=== PATIENT | female | born 1990 | race Caucasian/White ===

== ENCOUNTER 2016-12-23 17:19 | Inpatient (IN) | payer BC ==
[~2016-12-23] VITALS: Ht 154.9 cm; Wt 63.6 kg
[2016-12-23 17:25] VITALS: Ht 154.9 cm; Wt 63.6 kg
[2016-12-23] MEDS ORDERED: PRENAT PO (17:27)
[2016-12-23 18:42] LABS: ADD SCAN DIFF NO
[2016-12-23 18:44] LABS: ABNORMAL IP MESSAGE 1; BASOPHILS % 0.2 % (0.0-2.0); EOSINOPHILS % 0.3 % (0.0-7.0); HEMATOCRIT 31.1 % (37.0-47.0); HEMOGLOBIN 10.4 g/dl (12.0-16.0); LYMPHOCYTES # 0.6 10^3/ul (0.8-2.9); LYMPHOCYTES % 4.4 % (15.0-51.0); MEAN CORPUSCULAR HEMOGLOBIN 30.4 pg (29.0-33.0); MEAN CORPUSCULAR HGB CONC 33.4 g/dl (32.0-37.0); MEAN CORPUSCULAR VOLUME 90.9 fl (82.0-101.0); MEAN PLATELET VOLUME 10.2 fl (7.4-10.4); MONOCYTES % 8.1 % (0.0-11.0); NEUTROPHIL # 10.8 10^3/ul (1.6-7.5); NEUTROPHILS % 86.2 % (39.0-77.0); PLATELET COUNT 172 10^3/UL (140-415); RED BLOOD COUNT 3.42 10^6/ul (4.20-5.40); RED CELL DISTRIBUTION WIDTH 12.2 % (11.5-14.5); WHITE BLOOD COUNT 12.5 10^3/ul (4.8-10.8)
[2016-12-23 18:49] LABS: ADD UMIC YES; URINE BILIRUBIN (Dip) NEGATIVE (NEGATIVE); URINE BLOOD (Dip) NEGATIVE (NEGATIVE); URINE COLOR LT. YELLOW (YELLOW); URINE KETONES (Dip) NEGATIVE (NEGATIVE); URINE LEUKOCYTE ESTERASE (Dip) 1+ (NEGATIVE); URINE NITRITE (Dip) POSITIVE (NEGATIVE); URINE TOTAL PROTEIN (Dip) TRACE (NEGATIVE); URINE UROBILINOGEN (Dip) 0.2 E.U./dL (0.1-1.0)
[2016-12-23 19:03] LABS: BACTERIA,URINE MANY
[2016-12-23 19:04] LABS: SQUAMOUS EPITHELIAL CELL,UR MODERATE
[2016-12-23 19:59] VITALS: BP 118/60; PULSE 105; RESP 18
[2016-12-23] MEDS ORDERED: AL HYDROX/MG HYDROX/SIMETH 30 ML CUP PO PRN (20:00)
[2016-12-23] MEDS ORDERED: ONDANSETRON 4 MG INJ IV PRN (20:00)
[2016-12-23] MEDS ORDERED: SOD CHLORIDE 0.9% 500 ML IV ONE (20:00)
--- NOTE | 2016-12-23 20:08 | HP ---
Date/Time of Note Date/Time of Note DATE: 12/23/16 TIME: 19:55 OB - History Hx of Present Free Text/Dictation 26y.o primigravida at 28weeks 6days with high fever chills and nausea vomiting for the last 2days . highest temp was 101.2 vomiting thursday x1 and today x1 U/A wbc 25-50 with leuko esteras 1+ protein trace rbc 2-5 WBC 17310 admitted for IV antibiotics with hydration at present temp 99.3 HR 129 Estimated Due Date: Mar 11, 2017 : 1 Para: 0 Spontaneous : 0 Therapeutic : 0 Care: Good Care Ultrasounds: Normal mid trimester US Obstetrical Complications: None Past Family/Social History * Past Medical, Surgical, Family and Obstetric Histories reviewed from chart. Blood Type: Unknown Rubella: unknown RPR/VDRL: Unknown GBS Status: Unknown HBsAG: Unknown OB Admission Exam Physical Exam HEENT: WNL Heart: Rhythm Normal Lungs: Clear, Equal Abdomen: WNL Extremities: Normal Reflexes: Normal Cervical Dilatation: other Effacement: Other Station: Other Membranes: Intact Amniotic Fluid: Unevaluable Heart Rate: 140's Accelerations: Accelerations Present Decelerations: No Decelerations Varibility: Moderate Contractions on Admission: < 5 Minutes Apart Duration: not felt by patient cva rt tenderness ++ Intensity: Mild Last 72 hours Lab Results CBC & BMP 12/23/16 18:20 OB Assessment/Plan Reason for admission: other Other Assessment: IUP 28W6D FOOD PREPARATION KITCHEN AIDE Plan: Other Other plan: IV HYDRATION AND ANTIBIOTICS ( ROCEPHIN 1GM Q24HR) VALENTINA ELMORE MD Dec 23, 2016 20:05
--- NOTE | 2016-12-23 20:25 | TRIAGE ---
OB Triage Datetime Report Generated by CPN: 12/23/2016 20:25 Datetime: 12/23/2016 20:20 Stage of : OB Triage Datetime: 12/23/2016 20:11 Assessment Type: Admission Assessment Vaginal Bleeding: None Maternal Assessment Level of Consciousness: Fully Conscious DTR's/Clonus: DTRs 2+; No Clonus Headache: Denies Blurred Vision: No Respiratory Effort: Unlabored; Regular Rhythm; Equal Expansion Breath Sounds, Left: Clear and Equal Breath Sounds, Right: Clear and Equal Nausea/Vomiting: Denies RUQ Epigastric Pain: Denies Lower Extremities Edema: None Degree: None Upper Extremities Edema: None Degree: None Facial Edema: None Fall Risk Assessment History of Falling: (0) No Secondary Diagnosis: (0) No Ambulatory Aid: (0) Bedrest/Nurse Assist IV Therapy: (20) Yes Gait: (0) Normal/Bedrest/Immobile Mental Status: (0) Oriented to Own Ability Fall Score: 20 Fall Risk Score Definition: No Risk: No action required Labor Evaluation Frequency: IRREGULAR Duration (sec)2399: 60-110 Quality: Mild Resting Tone [place]: Relaxed Heart Rate FHR Baseline Rate: 150 Variability: Moderate 6-25 bpm Accelerations: 15X15 Decelerations: None Category: Category I Pain Assessment Pain Scale: 5 Pain Presence: Intermittent Pain Type: Contraction Pain Location: Abdomen Datetime: 12/23/2016 20:05 Stage of : Antepartum Datetime: 12/23/2016 19:36 Stage of : OB Triage Time of Arrival: 12/23/2016 19:36 EGA: 28.6 Arrived By: Wheelchair Arrived From: TRIAGE Datetime: 12/23/2016 19:20 Stage of : OB Triage Maternal Assessment Level of Consciousness: Fully Conscious Headache: Denies Blurred Vision: No Respiratory Effort: Unlabored Nausea/Vomiting: Hx of Nausea/Vomiting RUQ Epigastric Pain: Denies Facial Edema: None Labor Evaluation Frequency: OCCASIONAL Monitor Mode: External Quality: Mild Pattern: Normal: <= 5 Contractions in 10 Minutes Resting Tone [place]: Relaxed Heart Rate FHR Baseline Rate: 150 Monitor Mode: External US Variability: Moderate 6-25 bpm Accelerations: 15X15 Decelerations: None Category: Category I Pain Assessment Pain Scale: 0 Pain Presence: None/Denies Pain Type: N/A Pain Goal: 0 Datetime: 12/23/2016 18:30 Monitor Mode: External Heart Rate FHR Baseline Rate: 155 Monitor Mode: External US FHR Baseline Changes: No Baseline Change Variability: Moderate 6-25 bpm Accelerations: 15X15 Decelerations: None Category: Category I Pain Presence: None/Denies Datetime: 12/23/2016 17:30 Stage of : OB Triage Assessment Type: Triage Maternal Assessment Level of Consciousness: Fully Conscious Blurred Vision: No Breath Sounds, Left: Clear and Equal Breath Sounds, Right: Clear and Equal Nausea/Vomiting: Present RUQ Epigastric Pain: Present Lower Extremities Edema: None Degree: None Upper Extremities Edema: None Degree: None Facial Edema: None Temperature Route: Oral Labor Evaluation Frequency: OCC Monitor Mode: External Quality: Mild Pattern: Normal: <= 5 Contractions in 10 Minutes Resting Tone [place]: Relaxed Heart Rate FHR Baseline Rate: 135 Monitor Mode: External US FHR Baseline Changes: No Baseline Change Variability: Moderate 6-25 bpm Accelerations: 15X15 Decelerations: None Category: Category I Pain Assessment Pain Scale: 8 Pain Presence: Intermittent Pain Type: Cramping Pain Location: Abdomen; Right Flank Pain Relief Measures: Comfort Measures Datetime: 12/23/2016 17:21 Time of Arrival: 12/23/2016 17:20 EGA: 28.6 Arrived By: Ambulatory Arrived From: Home Chief Complaint: FEVER, NAUSEA AND VOMITING, R FLANK PAIN Movement: Present Contractions: Irregular Contractions: 1/HR (Annotations: Data stored by CPN on behalf of user) Rupture of Membranes: Denies Vaginal Bleeding: None Vaginal Discharge: Denies Recent Sexual Intercouse: Denies Abdominal Trauma: Not Applicable Patient Complaints: Cramping; Headache; Nausea; Vomiting; Epigastric Pain; Fever; Runny Nose Time Provider Notified: 12/23/2016 18:00 Provider Notified: FOROOHAR Initial Plan: CBC, UA (Annotations: Data stored by CPN on behalf of user) Datetime: 12/23/2016 17:20 Time of Arrival: 12/23/2016 17:20 Arrived From: Home Vaginal Bleeding: None
[2016-12-23] MEDS: SOD CHLORIDE 0.9% 1,000 ML IV SCH (20:45)
[2016-12-23] MEDS: CEFTRIAXONE 1 GM/50 ML (PMX) 50 ML IVPB SCH (20:45)
[2016-12-23] MEDS: ACETAMINOPHEN 325 MG TAB PO PRN (23:32)
[2016-12-24] MEDS: SOD CHLORIDE 0.9% 1,000 ML IV SCH ×3 (06:25→21:43)
[2016-12-24] MEDS: MULTIVIT/MIN/FOLATE/IRON/PREN TAB PO SCH (09:37)
--- NOTE | 2016-12-24 14:20 | PN ---
Date/Time of Note Date/Time of Note DATE: 12/24/16 TIME: 14:17 OB Subjective Subjective Subjective Afebrile vital signs stable temperature 98.4 no complaint of flank pain currently on Rocephin 1 g every 24 hours urine culture result not available we will continue present treatment. MILAN HALL MD Dec 24, 2016 14:20
[2016-12-24] MEDS: CEFTRIAXONE 1 GM/50 ML (PMX) 50 ML IVPB SCH (19:46)
[2016-12-24] MEDS: ACETAMINOPHEN 325 MG TAB PO PRN (20:30)
[2016-12-25] MEDS: SOD CHLORIDE 0.9% 1,000 ML IV SCH ×2 (05:20→12:38)
[2016-12-25] MEDS: ACETAMINOPHEN 325 MG TAB PO PRN (06:56)
[2016-12-25 08:05] LABS: ADD SCAN DIFF NO
[2016-12-25 08:12] LABS: BASOPHILS % 0.1 % (0.0-2.0); EOSINOPHILS # 0.1 10^3/ul (0.0-0.5); EOSINOPHILS % 1.1 % (0.0-7.0); HEMATOCRIT 28.1 % (37.0-47.0); HEMOGLOBIN 9.2 g/dl (12.0-16.0); LYMPHOCYTES # 1.4 10^3/ul (0.8-2.9); MEAN CORPUSCULAR HEMOGLOBIN 30.3 pg (29.0-33.0); MEAN CORPUSCULAR HGB CONC 32.7 g/dl (32.0-37.0); MEAN CORPUSCULAR VOLUME 92.4 fl (82.0-101.0); MEAN PLATELET VOLUME 10.4 fl (7.4-10.4); MONOCYTE # 0.9 10^3/ul (0.3-0.9); MONOCYTES % 9.2 % (0.0-11.0); NEUTROPHIL # 7.4 10^3/ul (1.6-7.5); NEUTROPHILS % 74.8 % (39.0-77.0); PLATELET COUNT 158 10^3/UL (140-415); RED BLOOD COUNT 3.04 10^6/ul (4.20-5.40); RED CELL DISTRIBUTION WIDTH 12.4 % (11.5-14.5); WHITE BLOOD COUNT 9.9 10^3/ul (4.8-10.8)
[2016-12-25] MEDS: MULTIVIT/MIN/FOLATE/IRON/PREN TAB PO SCH (08:52)
--- NOTE | 2016-12-25 12:23 | PDOCDIS ---
Discharge Instructions CONDITION Patient Condition: Good HOME CARE INSTRUCTIONS: Diet Instructions: Regular ACTIVITY: Activity Restrictions: No Restrictions No Sexual Activity Bathing Restrictions: Shower FOLLOW UP/APPOINTMENTS Appointments Follow-up appointment in the office in 1 week OTHER ORDERS: Other Orders: Patient received a prescription Macrobid 1 tablet twice daily MILAN HALL MD Dec 25, 2016 12:23
--- NOTE | 2016-12-25 12:34 | DS ---
Date/Time of Note Date/Time of Note DATE: 12/25/16 TIME: 12:25 Discharge Summary Admission/Discharge Info Admit Date/Time Dec 23, 2016 at 19:36 Discharge Date/Time December 25 Final Diagnosis Pyelonephritis, 29 weeks Patient Condition: Good Procedures Medical treatment for pyelonephritis Hx of Present Illness 29 weeks 1 para 0 admitted for right flank pain-fever nausea with the diagnosis of pyelonephritis Hospital Course Satisfactory Home Meds Reported Medications Multivit/Min/Fol Ac/Iron/Pren* ( S*) 1 Tab Tab, 1 TAB PO DAILY, TAB 12/23/16 Follow-up Plan Patient responded well to in-house antibiotic therapy discharge home with a prescription (Macrobid 1 tablet twice daily for 2 weeks), recommended appointment to the office in 1 week. Laboratory Tests Test 12/25/16 06:02 White Blood Count 9.910^3/ul Red Blood Count 3.0410^6/ul Hemoglobin 9.2g/dl Hematocrit 28.1% Mean Corpuscular Volume 92.4fl Mean Corpuscular Hemoglobin 30.3pg Mean Corpuscular Hemoglobin Concent 32.7g/dl Red Cell Distribution Width 12.4% Platelet Count 27711^3/UL Mean Platelet Volume 10.4fl Neutrophils % 74.8% Lymphocytes % 14.0% Monocytes % 9.2% Eosinophils % 1.1% Basophils % 0.1% Nucleated Red Blood Cells % 0.0/100WBC Neutrophils # 7.410^3/ul Lymphocytes # 1.410^3/ul Monocytes # 0.910^3/ul Eosinophils # 0.110^3/ul Basophils # 0.010^3/ul Nucleated Red Blood Cells # 0.010^3/ul Current Medications Medications (Trade) Dose Ordered Sig/Katie Route PRN Reason Start Time Stop Time Status Last Admin Dose Admin Prenat Multivit/ [place]/Iron/Folic Ac ( S) 1 tab DAILY PO 12/24/16 09:00 12/25/16 08:52 Acetaminophen (Tylenol Tab) 650 mg Q4H PRN PO PAIN AND OR ELEVATED TEMP 12/23/16 20:00 12/25/16 06:56 Al Hydrox/Mg Hydrox/Simethicone (Mag-Al Plus) 30 ml Q6H PRN PO GASTROINTESTINAL UPSET 12/23/16 20:00 Ondansetron HCl 4 mg 4 mg Q6H PRN IV NAUSEA AND/OR VOMITING 12/23/16 20:00 Sodium Chloride 500 ml @ 500 mls/hr Q1H ONCE IV 12/23/16 20:00 12/23/16 20:59 DC 12/23/16 20:10 Sodium Chloride 1,000 ml @ 125 mls/hr Q8H IV 12/23/16 21:00 12/25/16 05:20 Ceftriaxone Sodium (Rocephin) 50 ml @ 100 mls/hr Q24H IVPB 12/23/16 19:44 12/24/16 19:46 Pending Labs Laboratory Tests Test 12/25/16 06:02 White Blood Count 9.910^3/ul (4.8-10.8) Red Blood Count 3.0410^6/ul (4.20-5.40) Hemoglobin 9.2g/dl (12.0-16.0) Hematocrit 28.1% (37.0-47.0) Mean Corpuscular Volume 92.4fl (82.0-101.0) Mean Corpuscular Hemoglobin 30.3pg (29.0-33.0) Mean Corpuscular Hemoglobin Concent 32.7g/dl (32.0-37.0) Red Cell Distribution Width 12.4% (11.5-14.5) Platelet Count 75508^3/UL (140-415) Mean Platelet Volume 10.4fl (7.4-10.4) Neutrophils % 74.8% (39.0-77.0) Lymphocytes % 14.0% (15.0-51.0) Monocytes % 9.2% (0.0-11.0) Eosinophils % 1.1% (0.0-7.0) Basophils % 0.1% (0.0-2.0) Nucleated Red Blood Cells % 0.0/100WBC (0.0-0.0) Neutrophils # 7.410^3/ul (1.6-7.5) Lymphocytes # 1.410^3/ul (0.8-2.9) Monocytes # 0.910^3/ul (0.3-0.9) Eosinophils # 0.110^3/ul (0.0-0.5) Basophils # 0.010^3/ul (0.0-0.1) Nucleated Red Blood Cells # 0.010^3/ul (0.0-0.0) MILAN HALL MD Dec 25, 2016 12:34
[2016-12-25] MEDS: CEFTRIAXONE 1 GM/50 ML (PMX) 50 ML IVPB SCH (19:32)
== END 2016-12-25 22:08 | disposition home or self-care (01) | DRG 781 ==
LOC: OBT 17:19 → L-D 17:20 → OBG 19:36 → OBT 19:36
PROVIDERS: ADMIT Obstetrics & Gynecology; ATTEND Obstetrics & Gynecology
DX: O23.03 Infections of kidney in pregnancy, third trimester (principal); Z3A.29 29 weeks gestation of pregnancy
CPT/HCPCS: 36415; 81001; 81003; 85025; 87086; G0463; J0696; J7030; J7040

== ENCOUNTER 2017-02-23 11:38 | Outpatient (CLI) | payer BC ==
[~2017-02-23] VITALS: Ht 154.9 cm; Wt 73.5 kg
[~2017-02-23 11:38] MED LIST: PRENAT PO
[2017-02-23 12:06] VITALS: BP 123/60; PULSE 85; RESP 20
[2017-02-23 12:23] LABS: URINE BLOOD (Dip) POC Trace-intact (NEGATIVE)
--- NOTE | 2017-02-23 12:43 | RADRPT ---
PROCEDURE: OB ultrasound for biophysical profile CLINICAL INDICATION: Biophysical profile. . TECHNIQUE: Multiple sonographic images of the pelvis were obtained. Transabdominal views are obta ined. COMPARISON: None FINDINGS: Single intrauterine gestation. Presentation: Cephalic. Placenta: Fundal No evidence of placental abruption. No evidence of placenta previa. breathing movement = 2/2 tone = 2/2 motion = 2/2 FELICITAS = 2/2 FELICITAS = 15.2 cm heart rate: 122 beats per minute IMPRESSION: Single intrauterine gestation. Biophysical profile 04/21 RPTAT: AADD .Tuan Macias MD, MD Date Time Electronically viewed and signed by .Tuan Macias MD, on 02/23/2017 12:42 .B/
[2017-02-23 12:50] LABS: ADD SCAN DIFF NO
[2017-02-23 12:51] VITALS: Ht 154.9 cm; Wt 73.5 kg
[2017-02-23 12:52] LABS: BASOPHILS % 0.3 % (0.0-2.0); EOSINOPHILS # 0.1 10^3/ul (0.0-0.5); EOSINOPHILS % 0.7 % (0.0-7.0); HEMATOCRIT 33.8 % (37.0-47.0); HEMOGLOBIN 11.1 g/dl (12.0-16.0); LYMPHOCYTES # 2.1 10^3/ul (0.8-2.9); LYMPHOCYTES % 21.4 % (15.0-51.0); MEAN CORPUSCULAR HGB CONC 32.8 g/dl (32.0-37.0); MEAN CORPUSCULAR VOLUME 85.4 fl (82.0-101.0); MEAN PLATELET VOLUME 10.7 fl (7.4-10.4); MONOCYTE # 0.5 10^3/ul (0.3-0.9); MONOCYTES % 5.3 % (0.0-11.0); NEUTROPHIL # 6.9 10^3/ul (1.6-7.5); NEUTROPHILS % 71.5 % (39.0-77.0); PLATELET COUNT 192 10^3/UL (140-415); RED BLOOD COUNT 3.96 10^6/ul (4.20-5.40); RED CELL DISTRIBUTION WIDTH 12.6 % (11.5-14.5); WHITE BLOOD COUNT 9.6 10^3/ul (4.8-10.8)
[2017-02-23 12:55] LABS: ADD UMIC YES; URINE BILIRUBIN (Dip) NEGATIVE (NEGATIVE); URINE BLOOD (Dip) NEGATIVE (NEGATIVE); URINE COLOR LT. YELLOW (YELLOW); URINE GLUCOSE (Dip) NEGATIVE (NEGATIVE); URINE KETONES (Dip) NEGATIVE (NEGATIVE); URINE LEUKOCYTE ESTERASE (Dip) 3+ (NEGATIVE); URINE NITRITE (Dip) NEGATIVE (NEGATIVE); URINE TOTAL PROTEIN (Dip) NEGATIVE (NEGATIVE); URINE UROBILINOGEN (Dip) 0.2 E.U./dL (0.1-1.0)
[2017-02-23 13:04] LABS: BACTERIA,URINE FEW; URINE RBCS 0-2 /HPF (0)
[2017-02-23 13:12] LABS: ALBUMIN 4.2 g/dl (3.3-4.9); ALBUMIN/GLOBULIN RATIO 1.55; BILIRUBIN,INDIRECT 0.2 mg/dl (0-1.1); BILIRUBIN,TOTAL 0.2 mg/dl (0.2-1.3); CALCIUM 9.6 mg/dl (8.4-10.2); CREATININE 0.62 mg/dl (0.44-1.00); TOTAL PROTEIN 6.9 g/dl (6.1-8.1); URIC ACID 5.4 mg/dl (3.1-7.9)
[2017-02-23 13:16] LABS: INR 0.98
--- NOTE | 2017-02-23 13:20 | QN ---
Documentation Comment ioup 37 weeks htn evaluation. no symptoms vss 120/60 exam wnl labs wnl ap iup 37 weeks r/o PIH-stable DC home ISHMAEL MONTENEGRO MD Feb 23, 2017 13:20
[2017-02-23] MEDS ORDERED: CEFTRIAXONE 1 GM INJ IM ONE (14:30)
--- NOTE | 2017-02-23 15:01 | TRIAGE ---
OB Triage Datetime Report Generated by CPN: 02/23/2017 15:00 Datetime: 02/23/2017 13:45 Time of Arrival: 02/23/2017 11:35 EGA: 37.2 Arrived By: Ambulatory Arrived From: Dr. Blood Chief Complaint: CAME WITH ORDERS TO R/O PI Movement: Present Contractions: Denies/Absent Rupture of Membranes: Denies Vaginal Bleeding: None Vaginal Discharge: Denies Recent Sexual Intercouse: Denies Abdominal Trauma: Not Applicable Time Provider Notified: 02/23/2017 12:45 Provider Notified: DR. MONTENEGRO Initial Plan: NST, BPP, PIH PANEL Datetime: 02/23/2017 13:30 Stage of : OB Triage Datetime: 02/23/2017 12:57 Stage of : OB Triage Labor Evaluation Frequency: IRREG Monitor Mode: External Duration (sec)2399: 50-80 Quality: Mild Pattern: Normal: <= 5 Contractions in 10 Minutes Resting Tone [place]: Relaxed Heart Rate FHR Baseline Rate: 125 Monitor Mode: External US Variability: Moderate 6-25 bpm Accelerations: 15X15 Category: Category I Datetime: 02/23/2017 12:09 Labor Evaluation Frequency: IRREG Monitor Mode: External Duration (sec)2399: 50-80 Quality: Mild Pattern: Normal: <= 5 Contractions in 10 Minutes Resting Tone [place]: Relaxed Heart Rate FHR Baseline Rate: 125 Monitor Mode: External US Variability: Moderate 6-25 bpm Accelerations: 15X15 Decelerations: None Category: Category I Comments: NST REACTIVE FOR GESTATIONAL AGE Datetime: 12/25/2016 21:15 Labor Evaluation Frequency: 0 Monitor Mode: External Pattern: Normal: <= 5 Contractions in 10 Minutes Resting Tone [place]: Relaxed Heart Rate FHR Baseline Rate: 140 Monitor Mode: External US FHR Baseline Changes: No Baseline Change Variability: Moderate 6-25 bpm Accelerations: 15X15 Decelerations: None Category: Category I Datetime: 12/25/2016 19:37 Assessment Type: Ongoing Assessment Maternal Assessment Level of Consciousness: Fully Conscious DTR's/Clonus: DTRs 2+; No Clonus Headache: Denies Blurred Vision: No Respiratory Effort: Unlabored; Regular Rhythm; Equal Expansion Breath Sounds, Left: Clear and Equal Breath Sounds, Right: Clear and Equal Nausea/Vomiting: Denies RUQ Epigastric Pain: Denies Lower Extremities Edema: None Degree: None Upper Extremities Edema: None Degree: None Facial Edema: None Temperature Route: Oral Fall Risk Assessment History of Falling: (0) No Secondary Diagnosis: (0) No Ambulatory Aid: (0) Bedrest/Nurse Assist IV Therapy: (20) Yes Gait: (0) Normal/Bedrest/Immobile Mental Status: (0) Oriented to Own Ability Fall Score: 20 Fall Risk Score Definition: No Risk: No action required Labor Evaluation Frequency: 0 Monitor Mode: External Pattern: Normal: <= 5 Contractions in 10 Minutes Resting Tone [place]: Relaxed Pain Assessment Pain Scale: 0 Pain Presence: None/Denies Pain Type: N/A Pain Goal: 0 Datetime: 12/25/2016 19:00 Labor Evaluation Frequency: 0 Monitor Mode: External Pattern: Normal: <= 5 Contractions in 10 Minutes Resting Tone [place]: Relaxed Datetime: 12/25/2016 18:00 Labor Evaluation Frequency: 0 Monitor Mode: External Pattern: Normal: <= 5 Contractions in 10 Minutes Resting Tone [place]: Relaxed Datetime: 12/25/2016 17:00 Labor Evaluation Frequency: 0 Monitor Mode: External Pattern: Normal: <= 5 Contractions in 10 Minutes Resting Tone [place]: Relaxed Datetime: 12/25/2016 16:00 Temperature Route: Oral Labor Evaluation Frequency: 0 Monitor Mode: External Pattern: Normal: <= 5 Contractions in 10 Minutes Resting Tone [place]: Relaxed Datetime: 12/25/2016 15:00 Labor Evaluation Frequency: IRRIT Monitor Mode: External Pattern: Normal: <= 5 Contractions in 10 Minutes Resting Tone [place]: Relaxed Heart Rate FHR Baseline Rate: 140 Monitor Mode: External US FHR Baseline Changes: No Baseline Change Variability: Moderate 6-25 bpm Accelerations: 15X15 Decelerations: None Category: Category I Datetime: 12/25/2016 14:00 Labor Evaluation Frequency: 0 Monitor Mode: External Pattern: Normal: <= 5 Contractions in 10 Minutes Resting Tone [place]: Relaxed Heart Rate FHR Baseline Rate: 130 Monitor Mode: External US FHR Baseline Changes: No Baseline Change Variability: Moderate 6-25 bpm Accelerations: 15X15 Decelerations: None Category: Category I Datetime: 12/25/2016 13:00 Labor Evaluation Frequency: 0 Monitor Mode: External Pattern: Normal: <= 5 Contractions in 10 Minutes Resting Tone [place]: Relaxed Datetime: 12/25/2016 12:00 Temperature Route: Oral Labor Evaluation Frequency: 0 Monitor Mode: External Pattern: Normal: <= 5 Contractions in 10 Minutes Resting Tone [place]: Relaxed Datetime: 12/25/2016 11:00 Labor Evaluation Frequency: 0 Monitor Mode: External Pattern: Normal: <= 5 Contractions in 10 Minutes Resting Tone [place]: Relaxed Datetime: 12/25/2016 10:00 Labor Evaluation Frequency: 0 Monitor Mode: External Pattern: Normal: <= 5 Contractions in 10 Minutes Resting Tone [place]: Relaxed Datetime: 12/25/2016 09:00 Labor Evaluation Frequency: 0 Monitor Mode: External Pattern: Normal: <= 5 Contractions in 10 Minutes Resting Tone [place]: Relaxed Datetime: 12/25/2016 07:58 Maternal Assessment Level of Consciousness: Fully Conscious DTR's/Clonus: DTRs 2+; No Clonus Headache: Denies Breath Sounds, Left: Clear and Equal Breath Sounds, Right: Clear and Equal Nausea/Vomiting: Denies RUQ Epigastric Pain: Denies Temperature Route: Oral Labor Evaluation Frequency: 0 Monitor Mode: External Pattern: Normal: <= 5 Contractions in 10 Minutes Resting Tone [place]: Relaxed Datetime: 12/25/2016 07:53 Assessment Type: Ongoing Assessment Blurred Vision: No Respiratory Effort: Unlabored; Regular Rhythm; Equal Expansion Upper Extremities Edema: None Degree: None Facial Edema: None Fall Risk Assessment History of Falling: (0) No Secondary Diagnosis: (0) No Ambulatory Aid: (0) Bedrest/Nurse Assist Gait: (0) Normal/Bedrest/Immobile Mental Status: (0) Oriented to Own Ability Datetime: 12/25/2016 06:55 Stage of : Antepartum Labor Evaluation Frequency: IRRITABILITY Monitor Mode: External Resting Tone [place]: Relaxed Contraction Comments: PT DENIES FEELING CONTRACTIONS Pain Assessment Pain Scale: 5 Pain Presence: Constant Pain Type: Sharp Pain Location: Right Flank Pain Goal: 2 Pain Relief Measures: Pain Medication Given Datetime: 12/25/2016 06:00 Stage of : Antepartum Labor Evaluation Frequency: IRRITABILITY Monitor Mode: External Resting Tone [place]: Relaxed Pain Assessment Pain Scale: 2 Pain Presence: Constant Pain Type: Sharp Pain Location: Right Flank Pain Goal: 2 Pain Relief Measures: Comfort Measures Datetime: 12/25/2016 05:00 Stage of : Antepartum Labor Evaluation Frequency: NONE Monitor Mode: External Resting Tone [place]: Relaxed Pain Assessment Pain Scale: 2 Pain Presence: Constant Pain Type: Sharp Pain Location: Right Flank Pain Goal: 2 Datetime: 12/25/2016 04:00 Stage of : Antepartum Labor Evaluation Frequency: NONE Monitor Mode: External Resting Tone [place]: Relaxed Pain Assessment Pain Scale: 0 Pain Presence: None/Denies Pain Type: N/A Pain Goal: 2 Datetime: 12/25/2016 03:00 Stage of : Antepartum Labor Evaluation Frequency: NONE Monitor Mode: External Resting Tone [place]: Relaxed Pain Assessment Pain Scale: 0 Pain Presence: None/Denies Pain Type: N/A Pain Goal: 2 Datetime: 12/25/2016 02:00 Stage of : Antepartum Labor Evaluation Frequency: NONE Monitor Mode: External Resting Tone [place]: Relaxed Pain Assessment Pain Scale: 0 Pain Presence: None/Denies Pain Type: N/A Pain Goal: 2 Datetime: 12/25/2016 01:00 Stage of : Antepartum Labor Evaluation Frequency: NONE Monitor Mode: External Resting Tone [place]: Relaxed Pain Assessment Pain Scale: 0 Pain Presence: None/Denies Pain Type: N/A Pain Goal: 2 Datetime: 12/25/2016 00:00 Stage of : Antepartum Labor Evaluation Frequency: NONE Monitor Mode: External Resting Tone [place]: Relaxed Contraction Comments: PT DENIES FEELING CONTRACTIONS Pain Assessment Pain Scale: 0 Pain Presence: None/Denies Pain Type: N/A Pain Goal: 2 Datetime: 12/24/2016 23:00 Stage of : Antepartum Labor Evaluation Frequency: IRRITABILITY Monitor Mode: External Resting Tone [place]: Relaxed Pain Assessment Pain Scale: 2 Pain Presence: Constant Pain Type: Sharp Pain Location: Right Flank Pain Goal: 2 Datetime: 12/24/2016 22:00 Stage of : Antepartum Labor Evaluation Frequency: X2 IN ONE HOUR Monitor Mode: External Duration (sec)2399: 90-100 Quality: Mild Resting Tone [place]: Relaxed Contraction Comments: INVERTED ON MONITOR Pain Assessment Pain Scale: 2 Pain Presence: Constant Pain Type: Sharp Pain Location: Right Flank Pain Goal: 2 Datetime: 12/24/2016 21:00 Stage of : Antepartum Labor Evaluation Frequency: X1 IN ONE HOUR Monitor Mode: External Duration (sec)2399: 70 Quality: Mild Resting Tone [place]: Relaxed Contraction Comments: PT DENIES FEELING ANY CONTRACTIONS Pain Assessment Pain Scale: 2 Pain Presence: Constant Pain Type: Sharp Pain Location: Right Flank Pain Goal: 2 Datetime: 12/24/2016 20:31 Comments: US REMOVED Datetime: 12/24/2016 20:30 Stage of : Antepartum Pain Assessment Pain Scale: 6 Pain Presence: Constant Pain Type: Sharp Pain Location: Right Flank Pain Goal: 2 Pain Relief Measures: Pain Medication Given Datetime: 12/24/2016 20:20 Stage of : Antepartum Datetime: 12/24/2016 20:11 Stage of : Antepartum Assessment Type: Ongoing Assessment Maternal Assessment Level of Consciousness: Fully Conscious DTR's/Clonus: DTRs 2+; No Clonus Headache: Denies Blurred Vision: No Respiratory Effort: Unlabored; Regular Rhythm; Equal Expansion Breath Sounds, Left: Clear and Equal Breath Sounds, Right: Clear and Equal Nausea/Vomiting: Denies RUQ Epigastric Pain: Denies Lower Extremities Edema: None Degree: None Upper Extremities Edema: None Degree: None Facial Edema: None Temperature Route: Oral Fall Risk Assessment History of Falling: (0) No Secondary Diagnosis: (0) No Ambulatory Aid: (0) Bedrest/Nurse Assist IV Therapy: (20) Yes Gait: (0) Normal/Bedrest/Immobile Mental Status: (0) Oriented to Own Ability Fall Score: 20 Fall Risk Score Definition: No Risk: No action required Pain Assessment Pain Scale: 5 Pain Presence: Constant Pain Type: Sharp Pain Location: Right Flank Pain Goal: 2 Pain Relief Measures: Comfort Measures Datetime: 12/24/2016 20:00 Stage of : Antepartum Labor Evaluation Frequency: NONE Monitor Mode: External Contraction Comments: PT DENIES FEELING ANY CONTRACTIONS Heart Rate FHR Baseline Rate: 145 Monitor Mode: External US Variability: Moderate 6-25 bpm Datetime: 12/24/2016 19:46 Stage of : Antepartum Datetime: 12/24/2016 19:45 Stage of : Antepartum Datetime: 12/24/2016 18:55 Labor Evaluation Frequency: none Monitor Mode: External Resting Tone [place]: Relaxed Heart Rate FHR Baseline Rate: 145 Monitor Mode: External US FHR Baseline Changes: No Baseline Change Variability: Moderate 6-25 bpm Accelerations: 15X15 Decelerations: Variable Comments: appropriate for [place] Datetime: 12/24/2016 18:01 Labor Evaluation Frequency: none Monitor Mode: External Resting Tone [place]: Relaxed Heart Rate FHR Baseline Rate: 150 Monitor Mode: External US FHR Baseline Changes: No Baseline Change Variability: Moderate 6-25 bpm Accelerations: 15X15 Decelerations: None Category: Category I Datetime: 12/24/2016 17:00 Labor Evaluation Frequency: x1 Monitor Mode: External Duration (sec)2399: 70 Resting Tone [place]: Relaxed Heart Rate FHR Baseline Rate: 140 Monitor Mode: External US FHR Baseline Changes: No Baseline Change Variability: Moderate 6-25 bpm Accelerations: 15X15 Decelerations: Variable Comments: appropriate for [place] Datetime: 12/24/2016 16:00 Labor Evaluation Frequency: none Monitor Mode: External Resting Tone [place]: Relaxed Heart Rate FHR Baseline Rate: 140 Monitor Mode: External US FHR Baseline Changes: No Baseline Change Variability: Moderate 6-25 bpm Accelerations: 15X15 Decelerations: None Category: Category I Datetime: 12/24/2016 15:43 Stage of : Antepartum Pain Assessment Pain Scale: 0 Pain Presence: None/Denies Pain Type: N/A Pain Assessment Comments: pt denies having flank pain Datetime: 12/24/2016 15:04 Labor Evaluation Frequency: x1 Monitor Mode: External Duration (sec)2399: 40 Resting Tone [place]: Relaxed Heart Rate FHR Baseline Rate: 135 Monitor Mode: External US FHR Baseline Changes: No Baseline Change Variability: Moderate 6-25 bpm Accelerations: 15X15 Decelerations: Variable Comments: appropriate for [place] Datetime: 12/24/2016 14:02 Labor Evaluation Frequency: x1 Monitor Mode: External Duration (sec)2399: 50 Quality: Mild Resting Tone [place]: Relaxed Heart Rate FHR Baseline Rate: 140 Monitor Mode: External US FHR Baseline Changes: No Baseline Change Variability: Moderate 6-25 bpm Accelerations: 15X15 Decelerations: None Category: Category I Datetime: 12/24/2016 13:01 Labor Evaluation Frequency: none Monitor Mode: External Resting Tone [place]: Relaxed Heart Rate FHR Baseline Rate: 130 Monitor Mode: External US FHR Baseline Changes: No Baseline Change Variability: Moderate 6-25 bpm Accelerations: 15X15 Decelerations: None Category: Category I Datetime: 12/24/2016 12:00 Labor Evaluation Frequency: NONE Monitor Mode: External Resting Tone [place]: Relaxed Heart Rate FHR Baseline Rate: 130 Monitor Mode: External US FHR Baseline Changes: No Baseline Change Variability: Moderate 6-25 bpm Accelerations: 15X15 Decelerations: None Category: Category I Datetime: 12/24/2016 11:04 Labor Evaluation Frequency: x1 Monitor Mode: External Duration (sec)2399: 70 Quality: Mild Resting Tone [place]: Relaxed Heart Rate FHR Baseline Rate: 130 Monitor Mode: External US FHR Baseline Changes: No Baseline Change Variability: Moderate 6-25 bpm Accelerations: 15X15 Decelerations: None Category: Category I Datetime: 12/24/2016 10:00 Labor Evaluation Frequency: x1 Monitor Mode: External Duration (sec)2399: 40 Quality: Mild Resting Tone [place]: Relaxed Heart Rate FHR Baseline Rate: 135 Monitor Mode: External US FHR Baseline Changes: No Baseline Change Variability: Moderate 6-25 bpm Accelerations: 15X15 Decelerations: None Category: Category I Datetime: 12/24/2016 09:01 Labor Evaluation Frequency: x2 Monitor Mode: External Duration (sec)2399: 40-50 Quality: Mild Resting Tone [place]: Relaxed Heart Rate FHR Baseline Rate: 130 Monitor Mode: External US FHR Baseline Changes: No Baseline Change Variability: Moderate 6-25 bpm Accelerations: 15X15 Decelerations: None Category: Category I Datetime: 12/24/2016 07:52 Labor Evaluation Frequency: X1 Monitor Mode: External Duration (sec)2399: 40 Quality: Mild Resting Tone [place]: Relaxed Contraction Comments: PT DENIES FEELING UCs Heart Rate FHR Baseline Rate: 130 FHR Baseline Changes: No Baseline Change Comments: PT IS MOVING Datetime: 12/24/2016 07:50 Stage of : Antepartum Assessment Type: Ongoing Assessment Maternal Assessment Level of Consciousness: Fully Conscious DTR's/Clonus: DTRs 2+; No Clonus Headache: Denies Blurred Vision: No Respiratory Effort: Unlabored; Regular Rhythm; Equal Expansion Breath Sounds, Left: Clear and Equal Breath Sounds, Right: Clear and Equal Nausea/Vomiting: Denies RUQ Epigastric Pain: Denies Lower Extremities Edema: None Degree: None Upper Extremities Edema: None Degree: None Facial Edema: None Temperature Route: Oral Fall Risk Assessment History of Falling: (0) No Secondary Diagnosis: (0) No Ambulatory Aid: (0) Bedrest/Nurse Assist IV Therapy: (20) Yes Gait: (0) Normal/Bedrest/Immobile Mental Status: (0) Oriented to Own Ability Fall Score: 20 Fall Risk Score Definition: No Risk: No action required Pain Assessment Pain Scale: 0 Pain Presence: None/Denies Pain Type: N/A Datetime: 12/24/2016 06:57 Labor Evaluation Frequency: irregular Monitor Mode: External Duration (sec)2399: 50-120 Quality: Mild Pattern: Normal: <= 5 Contractions in 10 Minutes Resting Tone [place]: Relaxed Heart Rate FHR Baseline Rate: 135 Monitor Mode: External US Variability: Moderate 6-25 bpm Accelerations: 15X15 Decelerations: None Category: Category I Datetime: 12/24/2016 06:41 Pain Assessment Pain Scale: 3 Pain Presence: Constant Pain Type: Ache Pain Location: Right Flank Pain Goal: 0 Pain Relief Measures: Comfort Measures Pain Assessment Comments: hot pack given to pt. Datetime: 12/24/2016 06:30 Maternal Assessment Level of Consciousness: Fully Conscious Respiratory Effort: Unlabored; Regular Rhythm; Equal Expansion Pain Assessment Pain Scale: 3 Pain Presence: Constant Pain Type: Ache Pain Location: Right Flank Pain Goal: 0 Pain Relief Measures: Comfort Measures Datetime: 12/24/2016 06:24 Monitor Mode: External US Datetime: 12/24/2016 06:00 Labor Evaluation Frequency: X1 Monitor Mode: External Duration (sec)2399: 60 Quality: Mild Pattern: Normal: <= 5 Contractions in 10 Minutes Resting Tone [place]: Relaxed Heart Rate FHR Baseline Rate: 135 Monitor Mode: External US Variability: Moderate 6-25 bpm Accelerations: 15X15 Decelerations: None Category: Category I Datetime: 12/24/2016 05:01 Pain Assessment Pain Scale: 0 Pain Presence: None/Denies Pain Type: N/A Pain Goal: 0 Datetime: 12/24/2016 05:00 Labor Evaluation Frequency: 0 Monitor Mode: External Duration (sec)2399: 0 Resting Tone [place]: Relaxed Heart Rate FHR Baseline Rate: 135 Monitor Mode: External US Variability: Moderate 6-25 bpm Accelerations: 15X15 Decelerations: None Category: Category I Comments: PERIODS OF MINIMAL VARIABILITY NOTED Datetime: 12/24/2016 04:00 Labor Evaluation Frequency: OCASSIONAL Monitor Mode: External Duration (sec)2399: 80-90 Quality: Mild Pattern: Normal: <= 5 Contractions in 10 Minutes Resting Tone [place]: Relaxed Heart Rate FHR Baseline Rate: 135 Monitor Mode: External US Variability: Moderate 6-25 bpm Accelerations: 15X15 Decelerations: None Category: Category I Pain Assessment Pain Scale: 0 Pain Presence: None/Denies Pain Type: N/A Pain Goal: 0 Datetime: 12/24/2016 03:00 Labor Evaluation Frequency: X1 Monitor Mode: External Duration (sec)2399: 70 Quality: Mild Pattern: Normal: <= 5 Contractions in 10 Minutes Resting Tone [place]: Relaxed Heart Rate FHR Baseline Rate: 135 Monitor Mode: External US Variability: Moderate 6-25 bpm Accelerations: 15X15 Decelerations: None Category: Category I Pain Assessment Pain Scale: 0 Pain Presence: None/Denies Pain Type: N/A Pain Goal: 0 Datetime: 12/24/2016 02:50 Monitor Mode: External Monitor Mode: External US Datetime: 12/24/2016 02:05 Maternal Assessment Level of Consciousness: Fully Conscious Headache: Denies Blurred Vision: No Respiratory Effort: Unlabored; Regular Rhythm; Equal Expansion Nausea/Vomiting: Denies RUQ Epigastric Pain: Denies Pain Assessment Pain Scale: 0 Pain Presence: None/Denies Pain Type: N/A Pain Goal: 0 Pain Assessment Comments: PT DENIED FEELING PAIN AT THIS TIME. Datetime: 12/24/2016 02:00 Labor Evaluation Frequency: X2 Monitor Mode: External Duration (sec)2399: 60-110 Quality: Mild Pattern: Normal: <= 5 Contractions in 10 Minutes Resting Tone [place]: Relaxed Heart Rate FHR Baseline Rate: 135 Monitor Mode: External US Variability: Moderate 6-25 bpm Accelerations: 15X15 Decelerations: Variable Category: Category II Datetime: 12/24/2016 01:00 Labor Evaluation Frequency: X2 Monitor Mode: External Duration (sec)2399: 60-130 Quality: Mild Pattern: Normal: <= 5 Contractions in 10 Minutes Resting Tone [place]: Relaxed Heart Rate FHR Baseline Rate: 140 Monitor Mode: External US Variability: Moderate 6-25 bpm Accelerations: 15X15 Decelerations: Variable Category: Category II Datetime: 12/24/2016 00:00 Labor Evaluation Frequency: OCCASIONAL Monitor Mode: External Duration (sec)2399: 50-110 Quality: Mild Pattern: Normal: <= 5 Contractions in 10 Minutes Resting Tone [place]: Relaxed Heart Rate FHR Baseline Rate: 135 Monitor Mode: External US Variability: Moderate 6-25 bpm Accelerations: 15X15 Decelerations: None Category: Category I Comments: LOSS OF CONTACT WHILE PT WAS SITTING UP IN BED. Pain Assessment Pain Scale: 3 Pain Presence: Intermittent Pain Type: Ache Pain Location: Right Flank Pain Goal: 0 Pain Relief Measures: Comfort Measures Pain Assessment Comments: PT STATES THAT SITTING IN HIGH [place] POSITION HELP RELIEVE THE RIGHT F LANK PAIN. Datetime: 12/23/2016 23:44 Monitor Mode: External US Datetime: 12/23/2016 23:31 Monitor Mode: External US Pain Assessment Pain Scale: 4 Pain Presence: Constant Pain Type: Ache Pain Location: Right Flank Pain Goal: 0 Pain Relief Measures: Pain Medication Given Datetime: 12/23/2016 23:00 Labor Evaluation Frequency: irregular Monitor Mode: External Duration (sec)2399: 40-90 Quality: Mild Pattern: Normal: <= 5 Contractions in 10 Minutes Resting Tone [place]: Relaxed Contraction Comments: uterine irritability noted; pt denies feeling uc's Heart Rate FHR Baseline Rate: 135 Monitor Mode: External US Variability: Moderate 6-25 bpm Accelerations: 15X15 Decelerations: None Category: Category I Comments: loss of contact when pt sits up Datetime: 12/23/2016 22:55 Monitor Mode: External US Datetime: 12/23/2016 22:13 Pain Assessment Pain Scale: 5 Pain Presence: Constant Pain Type: Ache Pain Location: Right Flank Pain Goal: 0 Pain Relief Measures: Comfort Measures Pain Assessment Comments: HOT PACK GIVEN TO PT Datetime: 12/23/2016 22:02 Maternal Assessment Level of Consciousness: Fully Conscious DTR's/Clonus: DTRs 2+; No Clonus Headache: Denies Blurred Vision: No Respiratory Effort: Unlabored; Regular Rhythm; Equal Expansion Breath Sounds, Left: Clear and Equal Breath Sounds, Right: Clear and Equal Nausea/Vomiting: Denies RUQ Epigastric Pain: Denies Pain Assessment Pain Scale: 5 Pain Presence: Intermittent Pain Type: Ache Pain Location: Right Flank Pain Goal: 0 Pain Relief Measures: Comfort Measures Datetime: 12/23/2016 21:55 Monitor Mode: External Monitor Mode: External US Datetime: 12/23/2016 21:46 Stage of : Antepartum Datetime: 12/23/2016 21:17 Vaginal Exam Membrane Status: Intact Datetime: 12/23/2016 21:15 Stage of : Antepartum Labor Evaluation Frequency: X4 Monitor Mode: External Duration (sec)2399: 50-80 Quality: Mild Pattern: Normal: <= 5 Contractions in 10 Minutes Resting Tone [place]: Relaxed Heart Rate FHR Baseline Rate: 150 Monitor Mode: External US Variability: Moderate 6-25 bpm Accelerations: 15X15 Decelerations: None Category: Category I Datetime: 12/23/2016 20:11 Fall Score: 20 Fall Risk Score Definition: No Risk: No action required Datetime: 12/23/2016 19:36 EGA: 28.3 Datetime: 12/23/2016 17:21 EGA: 28.3
== END 2017-02-23 14:45 | disposition home or self-care (01) ==
LOC: OBT 11:38 → L-D 11:39 → OBT 14:45
PROVIDERS: ATTEND Obstetrics & Gynecology
DX: O16.3 Unspecified maternal hypertension, third trimester (principal); Z3A.37 37 weeks gestation of pregnancy
CPT/HCPCS: 36415; 76818; 80053; 81001; 84560; 85025; 85384; 85610; 85730; 96372; G0463; J0696; 81003

== ENCOUNTER 2017-03-17 06:15 | Inpatient (IN) | payer BC ==
[~2017-03-17] VITALS: Ht 153 cm; Wt 75.7 kg
[2017-03-17] MEDS ORDERED: MISOPROSTOL 200 MCG TAB PR PRN ×2 (06:30→13:00)
[2017-03-17] MEDS ORDERED: CEFAZOLIN 2 GM/50 ML (PMX) 50 ML IV SCH (06:30)
[2017-03-17] MEDS ORDERED: OXYTOCIN 30 UNITS/LR 500 ML IV PRN ×2 (06:30→13:00)
[2017-03-17] MEDS ORDERED: METHYLERGONOVINE 0.2 MG INJ IM PRN ×2 (06:30→13:00)
[2017-03-17] MEDS ORDERED: CARBOPROST 250 MCG INJ IM PRN ×2 (06:30→13:00)
[2017-03-17 06:41] VITALS: BP 138/81; PULSE 84; RESP 16; Ht 153 cm; Wt 75.7 kg
[2017-03-17] MEDS: LACTATED RINGER'S 1,000 ML IV SCH ×2 (06:43→07:55)
[2017-03-17 06:56] LABS: ADD SCAN DIFF NO
[2017-03-17 07:03] LABS: BASOPHILS % 0.4 % (0.0-2.0); EOSINOPHILS # 0.3 10^3/ul (0.0-0.5); EOSINOPHILS % 2.8 % (0.0-7.0); HEMATOCRIT 34.3 % (37.0-47.0); HEMOGLOBIN 11.4 g/dl (12.0-16.0); LYMPHOCYTES # 2.4 10^3/ul (0.8-2.9); LYMPHOCYTES % 23.7 % (15.0-51.0); MEAN CORPUSCULAR HEMOGLOBIN 27.7 pg (29.0-33.0); MEAN CORPUSCULAR HGB CONC 33.2 g/dl (32.0-37.0); MEAN CORPUSCULAR VOLUME 83.5 fl (82.0-101.0); MEAN PLATELET VOLUME 11.1 fl (7.4-10.4); MONOCYTE # 0.6 10^3/ul (0.3-0.9); NEUTROPHIL # 6.6 10^3/ul (1.6-7.5); NEUTROPHILS % 66.3 % (39.0-77.0); PLATELET COUNT 192 10^3/UL (140-415); RED BLOOD COUNT 4.11 10^6/ul (4.20-5.40); RED CELL DISTRIBUTION WIDTH 13.3 % (11.5-14.5)
[2017-03-17 07:20] LABS: INR 0.84; PROTIME 11.5 Sec (12.2-14.2); PT RATIO 0.9
[2017-03-17] MEDS ORDERED: ONDANSETRON 4 MG INJ IV STA (07:39)
[2017-03-17] MEDS ORDERED: CITRIC ACID/SODIUM CITRATE 15 ML CUP PO ONE (07:40)
[2017-03-17] MEDS ORDERED: CITRIC ACID/NA CITRATE 30 ML CUP ONE (07:52)
[2017-03-17] MEDS ORDERED: OXYTOCIN 10 UNIT INJ ONE (09:23)
[2017-03-17] MEDS ORDERED: METOCLOPRAMIDE 10 MG INJ ONE (09:23)
[2017-03-17] MEDS ORDERED: PHENYLephrine (100 MCG/ML) 5ML SYG ONE (09:23)
[2017-03-17] MEDS ORDERED: FENTAnyl 50 MCG/ML VIAL ONE (09:23)
[2017-03-17] MEDS ORDERED: morphine SULFATE/PF (10 MG/10 ML) INJ ONE (09:23)
[2017-03-17] MEDS ORDERED: ONDANSETRON 4 MG INJ IV PRN ×2 (10:00)
[2017-03-17] MEDS ORDERED: MEPERIDINE 25 MG INJ IV PRN (10:00)
[2017-03-17] MEDS ORDERED: NALOXONE (0.4 MG/ML) INJ IV PRN (10:00)
[2017-03-17] MEDS ORDERED: FENTAnyl 50 MCG/ML VIAL IV PRN ×3 (10:00)
[2017-03-17] MEDS ORDERED: ZOLPIDEM 5 MG TAB PO PRN (10:00)
[2017-03-17] MEDS ORDERED: EPHEDrine SULFATE 50 MG/5 ML SYG IV PRN (10:00)
[2017-03-17] MEDS ORDERED: morphine 2 MG INJ IV PRN ×2 (10:00)
[2017-03-17] MEDS ORDERED: OXYCODONE/ACETAMINOPHEN (5/325) TAB PO PRN ×3 (10:00→13:00)
[2017-03-17] MEDS ORDERED: TRIMETHOBENZAMIDE 100 MG/ML VIAL IM PRN (10:00)
[2017-03-17] MEDS ORDERED: HYDROmorphONE (0.2 MG/ML) 10ML SYG IV PRN ×3 (10:00)
[2017-03-17] MEDS ORDERED: hydrALAzine 20 MG INJ IV PRN (10:00)
[2017-03-17] MEDS ORDERED: LABETALOL HCL 20MG INJ IV PRN (10:00)
[2017-03-17] MEDS ORDERED: DIPHENHYDRAMINE 50 MG INJ IV PRN ×2 (10:00)
[2017-03-17] MEDS ORDERED: MIDAZOLAM 1 MG/ML 2 ML INJ IV PRN (10:00)
--- NOTE | 2017-03-17 10:30 | HP ---
Date/Time of Note Date/Time of Note DATE: 03/17/17 TIME: 10:19 OB - History Hx of Present Free Text/Dictation 26 years old white female 1 para EDC of March 14, 2007 admitted to [facility] at 40 weeks and 3 day requested elective section due to suspected macrosomia estimated weight over 4000 patient declined trial of labor This patient has been under the care of the [facility] was not complicated with gestational diabetes -induced hypertension or any other surgical or medical condition [employer] history [place] at this 12 history of regular periods who previous hospital admission for surgical or medical condition Allergies denies allergy to any known medication Social habit denies a smoking or drinking or using illicit drugs Review of system within normal Physical examination 5 feet 167 pounds total weight gain during the 44 pounds Blood pressure 98.6 pulse 77 respiration 18 blood pressure 127/79 Head ears nose and throat negative Neck supple no thyromegaly Lungs clear to P&A Heart normal sinus rhythm no murmur Abdomen fundal height 39 cm from symphysis pubis heart rate category 1 Pelvic examination deferred Extremities 2+ pedal edema on both ankles, lower extremity reflexes within normal Impression intrauterine at 40 weeks and 3 days Estimated weight over 4000 g patient declined trial of labor requesting C- section delivery Complication of the surgery including but not limited to bowel and bladder injury wound infection and hematoma has been discussed with the patient she would like to proceed with the operation Estimated Due Date: Mar 14, 2017 : 1 Para: 0 Care: Good Care Ultrasounds: Normal mid trimester US Obstetrical Complications: None Past Family/Social History * Past Medical, Surgical, Family and Obstetric Histories reviewed from chart. Rubella: immune RPR/VDRL: Negative GBS Status: Negative HBsAG: Negative OB Admission Exam Vital Signs Vital Signs Vital Signs Date Time Temp Pulse Resp B/P Pulse Ox O2 Delivery O2 Flow Rate FiO2 03/17/17 06:41 98.5 84 16 138/81 Room Air Physical Exam HEENT: WNL Heart: Rhythm Normal Lungs: Clear, Equal Abdomen: WNL Extremities: Normal Reflexes: Normal Cervical Dilatation: None Station: -2 Heart Rate: 130's Accelerations: Accelerations Present Decelerations: No Decelerations Varibility: Moderate Contractions on Admission: None Last 72 hours Lab Results CBC & BMP 03/17/17 06:40 OB Assessment/Plan Reason for admission: other (40 weeks and 3 days suspected estimated weight over 4000 g patient declined trial of labor requested delivery) Plan: Section MILAN HALL MD Mar 17, 2017 10:30
--- NOTE | 2017-03-17 10:41 | OPR ---
Operative Report Planned Procedure Free Text/Dictation 40 weeks and 3 days estimated weight over 4000 g patient declined further trial of labor requested delivery Procedure date Mar 17, 2017 Procedure(s) Primary Performed by: MILAN HALL MD Assisting provider: CARLO LEMA MD Anesthesiologist: Sergio Suero M.D. Pre-procedure diagnosis 40 weeks 3 days suspected large baby over 4000 g patient declined trial of labor requesting delivery Anesthesia Type: spinal Procedure Description Under satisfactory spinal [] anesthesia, the patient was prepped and draped and placed in a supine position, tilted to the left. Pfannenstiel incision was made , carried through the subcutaneous tissue. Bleeders brought under control with electrocautery. Fascia incised to the length of the incision. Rectus muscles from the fascia, divided midline. Peritoneum exposed, entered through a transverse incision. Exploration of abdomen revealed gravid uterus normal- appearing tubes and ovaries. Bladder flap was developed. Transverse incision was made in the lower segment of the uterus. Amniotic sac ruptured. [Clear] amniotic fluid noted. Live baby boy delivered from vertex presentation occiput posterior,Nasal oropharyngeal suction was performed. baby handed to the team for immediate attention patient received 20 units of Pitocin. placenta was delivered manually intact inspected complete. Uterine cavity was cleaned with wet sponge and drainage established. Uterus closed in 2 layers using [Monocryl #1] in continuous fashion. Peritoneal cavity irrigated with warm saline. Sponge, needle and instrument count reported to be correct. Abdominal peritoneum closed with [2-0 chromic catgut] continuously. Rectus muscle approximated with [2-0 chromic catgut]. Fascia closed with [#1 PDS] subcutaneous tissue approximated with several interrupted 2-0 chromic catgut, skin closed with 3-0 Monocryl subcuticular fashion ,estimated blood loss 600cc Urine bag contained [200]mL of clear urine. Patient tolerated procedure well transferred to recovery room in good condition Post-Procedure Findings: Live Baby boy , Apgars 9 and 9, weight 4160 g Specimen removed: Yes Complications: None Pt Condition post procedure: stable Physician Certification I, the undersigned physician, hereby certify that I have discussed the procedure described in this consent form with this patient (or the patient's legal artist representative), including: * The risk and benefits of the procedure; * Any adverse reactions that may reasonably be expected to occur; * Any alternative efficacious methods of treatment which may be medically viable ; * The potential problems that may occur during recuperation; * Potential for blood transfusion and associated risks/benefits; and * Any research or economic interest I may have regarding this treatment. I further certify that the patient/legally responsible person was encouraged to ask question and that all questions were answered. MILAN HALL MD Mar 17, 2017 10:40
[2017-03-17 12:50] VITALS: BP 132/81; PULSE 76; RESP 17
[2017-03-17] MEDS ORDERED: ACETAMINOPHEN/CODEINE #3 TAB PO PRN ×2 (13:00)
[2017-03-17] MEDS ORDERED: LANOLIN 7 GM TUBE TOP PRN (13:00)
[2017-03-17] MEDS ORDERED: CEFAZOLIN 1 GM/50 ML (PMX) 50 ML IVPB SCH (13:00)
[2017-03-17] MEDS: OXYTOCIN 30 UNITS/LR 500 ML IV SCH ×2 (14:21→20:40)
[2017-03-17] MEDS: KETOROLAC 30 MG INJ IV PRN (15:41)
[2017-03-17 16:39] VITALS: BP 140/70; PULSE 68; RESP 18
[2017-03-17 19:50] VITALS: BP 133/55; PULSE 70; RESP 18
[2017-03-17] MEDS: SENNA/DOCUSATE NA (8.6MG/50MG) TAB PO SCH (20:36)
[2017-03-18] VITALS: BP 121/65; PULSE 68; RESP 19
[2017-03-18] MEDS: OXYTOCIN 30 UNITS/LR 500 ML IV SCH ×7 (00:48→20:36)
[2017-03-18] MEDS: KETOROLAC 30 MG INJ IV PRN ×2 (01:09→09:22)
[2017-03-18 03:42] VITALS: BP 105/55; PULSE 69; RESP 18
[2017-03-18] MEDS: LACTATED RINGER'S 1,000 ML IV SCH ×3 (04:54→20:37)
[2017-03-18] MEDS: IBUPROFEN 600 MG TAB PO SCH ×5 (05:31→23:33)
[2017-03-18 06:43] LABS: ADD SCAN DIFF NO
[2017-03-18 06:53] LABS: BASOPHILS % 0.3 % (0.0-2.0); EOSINOPHILS # 0.2 10^3/ul (0.0-0.5); EOSINOPHILS % 2.3 % (0.0-7.0); HEMATOCRIT 26.7 % (37.0-47.0); HEMOGLOBIN 8.5 g/dl (12.0-16.0); LYMPHOCYTES # 1.9 10^3/ul (0.8-2.9); LYMPHOCYTES % 20.5 % (15.0-51.0); MEAN CORPUSCULAR HEMOGLOBIN 27.2 pg (29.0-33.0); MEAN CORPUSCULAR HGB CONC 31.8 g/dl (32.0-37.0); MEAN CORPUSCULAR VOLUME 85.6 fl (82.0-101.0); MEAN PLATELET VOLUME 10.7 fl (7.4-10.4); MONOCYTE # 0.4 10^3/ul (0.3-0.9); MONOCYTES % 4.3 % (0.0-11.0); NEUTROPHIL # 6.7 10^3/ul (1.6-7.5); NEUTROPHILS % 72.1 % (39.0-77.0); RED BLOOD COUNT 3.12 10^6/ul (4.20-5.40); RED CELL DISTRIBUTION WIDTH 13.7 % (11.5-14.5); WHITE BLOOD COUNT 9.2 10^3/ul (4.8-10.8)
[2017-03-18 07:01] LABS: PLATELET COUNT 158 10^3/UL (140-415)
[2017-03-18 08:40] VITALS: BP 112/52; PULSE 75; RESP 18
[2017-03-18] MEDS: SENNA/DOCUSATE NA (8.6MG/50MG) TAB PO SCH ×2 (09:22→21:41)
[2017-03-18 15:40] VITALS: BP 119/58; PULSE 67; RESP 18
--- NOTE | 2017-03-18 18:17 | PN ---
Date/Time of Note Date/Time of Note DATE: 03/18/17 TIME: 18:14 OB Subjective Subjective Subjective Post day 1 Afebrile vital signs are stable abdomen soft incision dry patient has rashes on both legs which is improving from the night before using Benadryl cream which is helping, ambulation encouraged Laboratory Tests Test 03/18/17 06:25 White Blood Count 9.210^3/ul Red Blood Count 3.1210^6/ul Hemoglobin 8.5g/dl Hematocrit 26.7% Mean Corpuscular Volume 85.6fl Mean Corpuscular Hemoglobin 27.2pg Mean Corpuscular Hemoglobin Concent 31.8g/dl Red Cell Distribution Width 13.7% Platelet Count 56042^3/UL Mean Platelet Volume 10.7fl Neutrophils % 72.1% Lymphocytes % 20.5% Monocytes % 4.3% Eosinophils % 2.3% Basophils % 0.3% Nucleated Red Blood Cells % 0.0/100WBC Neutrophils # 6.710^3/ul Lymphocytes # 1.910^3/ul Monocytes # 0.410^3/ul Eosinophils # 0.210^3/ul Basophils # 0.010^3/ul Nucleated Red Blood Cells # 0.010^3/ul Current Medications Medications (Trade) Dose Ordered Sig/Katie Route PRN Reason Start Time Stop Time Status Last Admin Dose Admin Lactated Ringer's 1,000 ml @ 125 mls/hr Q8H IV 03/17/17 06:26 03/17/17 12:55 DC 03/17/17 07:55 Cefazolin Sodium/ Dextrose 50 ml @ 100 mls/hr ONCE IV 03/17/17 06:30 03/17/17 12:55 DC Oxytocin/Lactated Ringer's 500 ml @ 0 mls/hr ONCE PRN IV For Hemorrhage Management 03/17/17 06:30 03/17/17 12:55 DC 03/17/17 11:37 Methylergonovine Maleate (Methergine) 0.2 mg ONCE PRN IM VAGINAL BLEEDING 03/17/17 06:30 03/17/17 12:55 DC Carboprost Tromethamine (Hemabate) 250 mcg ONCE PRN IM VAGINAL BLEEDING 03/17/17 06:30 03/17/17 12:55 DC Misoprostol (Cytotec) 1,000 mcg ONCE PRN TN VAGINAL BLEEDING 03/17/17 06:30 03/17/17 12:55 DC Citric Acid/ Sodium Citrate (Bicitra) 30 ml ONCE ONCE PO 03/17/17 07:40 03/17/17 07:46 DC 03/17/17 07:59 Ondansetron HCl (Zofran Inj) 4 mg ONCE STAT IV 03/17/17 07:39 03/17/17 07:46 DC 03/17/17 07:56 Citric Acid/ Sodium Citrate (Bicitra) 30 ml STK-MED ONCE .ROUTE 03/17/17 07:52 03/17/17 07:53 DC Fentanyl (Sublimaze) 100 mcg STK-MED ONCE .ROUTE 03/17/17 09:23 03/17/17 09:24 DC Phenylephrine HCl (Roc-Synephrine Inj Syg) 500 mcg STK-MED ONCE .ROUTE 03/17/17 09:23 03/17/17 09:24 DC Metoclopramide HCl (Reglan) 10 mg STK-MED ONCE .ROUTE 03/17/17 09:23 03/17/17 09:24 DC Oxytocin (Oxytocin) 10 units STK-MED ONCE .ROUTE 03/17/17 09:23 03/17/17 09:24 DC Morphine Sulfate (Duramorph) 10 mg STK-MED ONCE .ROUTE 03/17/17 09:23 03/17/17 09:24 DC Hydromorphone HCl (Dilaudid (Rec)) 0.2 mg PACU ORDER PRN IV MILD PAIN LEVEL 1-3 03/17/17 10:00 03/17/17 12:55 DC Hydromorphone HCl (Dilaudid (Rec)) 0.4 mg PACU ORDER PRN IV MODERATE PAIN LEVEL 4-6 03/17/17 10:00 03/17/17 12:55 DC Hydromorphone HCl (Dilaudid (Rec)) 0.6 mg PACU ORDER PRN IV SEVERE PAIN LEVEL 7-10 03/17/17 10:00 03/17/17 12:55 DC Fentanyl (Sublimaze) 25 mcg PACU ORDER PRN IV MILD PAIN LEVEL 1-3 03/17/17 10:00 03/17/17 12:55 DC Fentanyl (Sublimaze) 50 mcg PACU ODER PRN IV MODERATE PAIN LEVEL 4-6 03/17/17 10:00 03/17/17 12:55 DC Fentanyl (Sublimaze) 75 mcg PACU ORDER PRN IV SEVERE PAIN LEVEL 7-10 03/17/17 10:00 03/17/17 12:55 DC Oxycodone/ Acetaminophen (Percocet (5/ 325)) 1 tab PACU ORDER PRN PO PAIN LEVEL 1-5 03/17/17 10:00 03/17/17 12:55 DC Oxycodone/ Acetaminophen (Percocet (5/ 325)) 2 tab PACU ORDER PRN PO PAIN LEVEL 6-10 03/17/17 10:00 03/17/17 12:55 DC Ondansetron HCl (Zofran Inj) 4 mg PACU ORDER PRN IV NAUSEA AND/OR VOMITING 03/17/17 10:00 03/17/17 12:55 DC Trimethobenzamide HCl (Tigan) 200 mg PACU ORDER PRN IM NAUSEA AND/OR VOMITING 03/17/17 10:00 03/17/17 12:55 DC Labetalol HCl (Labetalol) 5 mg PACU ORDER PRN IV HIGH BLOOD PRESSURE 03/17/17 10:00 03/17/17 12:55 DC Hydralazine HCl (Apresoline) 5 mg PACU ORDER PRN IV HIGH BLOOD PRESSURE 03/17/17 10:00 03/17/17 12:55 DC Ephedrine Sulfate 5 mg PACU ORDER PRN IV MAP LESS THAN 60 03/17/17 10:00 03/17/17 12:55 DC Meperidine HCl (Demerol) 25 mg PACU ORDER PRN IV POST-OP RIGORS 03/17/17 10:00 03/17/17 12:55 DC Diphenhydramine HCl (Benadryl) 25 mg PACU ORDER PRN IV PRURITUS 03/17/17 10:00 03/17/17 12:55 DC Midazolam HCl (Versed) 0.5 mg PACU ORDER PRN IV ANXIETY 03/17/17 10:00 03/17/17 12:55 DC Naloxone HCl (Narcan) 0.1 mg Q2M PRN IV FOR RESP RATE 8 OR LESS 03/17/17 10:00 03/18/17 09:24 DC Ketorolac Tromethamine (Toradol) 30 mg Q6H PRN IV PAIN 03/17/17 10:00 03/18/17 09:24 DC 03/18/17 09:22 Morphine Sulfate (morphine) 2 mg Q3H PRN IV PAIN LEVEL 1-5 03/17/17 10:00 03/18/17 09:24 DC Morphine Sulfate (morphine) 4 mg Q3H PRN IV PAIN LEVEL 6-10 03/17/17 10:00 03/18/17 09:24 DC Diphenhydramine HCl (Benadryl) 25 mg Q6H PRN IV ITCHING 03/17/17 10:00 03/18/17 09:24 DC Ondansetron HCl (Zofran Inj) 4 mg Q6H PRN IV NAUSEA AND/OR VOMITING 03/17/17 10:00 03/18/17 09:24 DC Zolpidem Tartrate (Ambien) 5 mg HS MAY REPEAT X 1 PRN PO INSOMNIA 03/17/17 10:00 03/18/17 09:24 DC Miscellaneous Information (* Miscellaneous Pharmacy Order) Duramorph: 0.2 mg Spi... GIVEN XX 03/17/17 10:00 03/17/17 12:55 DC Acetaminophen/ Codeine Phosphate (Tylenol No.3) 1 tab Q4H PRN PO PAIN LEVEL 4-6 03/17/17 13:00 Acetaminophen/ Codeine Phosphate (Tylenol No.3) 2 tab Q4H PRN PO PAIN LEVEL 7-10 03/17/17 13:00 Oxycodone/ Acetaminophen (Percocet (5/ 325)) 1 tab Q4H PRN PO PAIN LEVEL 4-6 03/17/17 13:00 Oxycodone/ Acetaminophen (Percocet (5/ 325)) 2 tab Q4H PRN PO PAIN LEVEL 7-10 03/17/17 13:00 Ibuprofen (Motrin) 600 mg Q6 PO 03/18/17 00:00 03/18/17 17:44 Simethicone (Mylicon) 160 mg Q8H PRN PO DISTENSION/GAS/BLOATING 03/17/17 13:00 Senna/Docusate Sodium (Senokot-S) 1 tab BID PO 03/17/17 21:00 03/18/17 09:22 Lanolin ([id number]) 1 applic BEDSIDE MEDICATION PRN TOP BEDSIDE FOR MADDIE TO NIPPLES 03/17/17 13:00 Diphtheria/ Tetanus/Acell Pertussis 0.5 ml 0.5 ml ONCE ONCE IM* 03/20/17 09:00 03/20/17 09:01 Oxytocin/Lactated Ringer's 500 ml @ 0 mls/hr ONCE PRN IV For Hemorrhage Management 03/17/17 13:00 Methylergonovine Maleate (Methergine) 0.2 mg ONCE PRN IM VAGINAL BLEEDING 03/17/17 13:00 Carboprost Tromethamine (Hemabate) 250 mcg ONCE PRN IM VAGINAL BLEEDING 03/17/17 13:00 Misoprostol 1000 mcg 1,000 mcg ONCE PRN TN VAGINAL BLEEDING 03/17/17 13:00 Cefazolin Sodium 50 ml @ 100 mls/hr ONCE IVPB 03/17/17 13:00 03/17/17 13:29 DC 03/17/17 14:41 Oxytocin/Lactated Ringer's 500 ml @ 125 mls/hr Q4H IV 03/17/17 12:48 03/18/17 00:51 Lactated Ringer's (Lr) 1,000 ml @ 125 mls/hr Q8H IV 03/18/17 05:00 03/18/17 04:54 MILAN HALL MD Mar 18, 2017 18:16
[2017-03-18 19:50] VITALS: BP 126/58; PULSE 73; RESP 18
[2017-03-19] MEDS: OXYCODONE/ACETAMINOPHEN (5/325) TAB PO PRN ×2 (00:02→21:16)
[2017-03-19] MEDS: OXYTOCIN 30 UNITS/LR 500 ML IV SCH ×4 (00:48→12:48)
[2017-03-19] MEDS: LACTATED RINGER'S 1,000 ML IV SCH ×2 (01:04→13:00)
[2017-03-19 03:48] VITALS: BP 114/56; PULSE 77; RESP 18
[2017-03-19] MEDS: IBUPROFEN 600 MG TAB PO SCH ×4 (05:57→23:44)
[2017-03-19 08:00] VITALS: BP 125/59; PULSE 74; RESP 18
[2017-03-19] MEDS: SENNA/DOCUSATE NA (8.6MG/50MG) TAB PO SCH ×2 (09:11→21:14)
--- NOTE | 2017-03-19 10:32 | PN ---
Date/Time of Note Date/Time of Note DATE: 03/19/17 TIME: 10:31 OB Subjective Subjective Subjective Post date Abdomen soft Incision dry Bowel sounds present No bowel movement Lochia moderate extremity normal Enema ordered MILAN HALL MD Mar 19, 2017 10:32
[2017-03-19] MEDS ORDERED: NA PHOSPHATE/BIPHOS 133 ML ENEMA PR SCH (11:00)
[2017-03-19 16:00] VITALS: BP 134/79; PULSE 73; RESP 18
[2017-03-19 20:00] VITALS: BP 135/72; PULSE 86; RESP 20
[2017-03-20 04:09] VITALS: BP 133/69; PULSE 74; RESP 20
[2017-03-20] MEDS: IBUPROFEN 600 MG TAB PO SCH ×2 (05:42→11:49)
[2017-03-20 07:45] VITALS: BP 131/67; PULSE 68; RESP 17
[2017-03-20] MEDS: SENNA/DOCUSATE NA (8.6MG/50MG) TAB PO SCH (08:51)
[2017-03-20] MEDS ORDERED: DIPHTH/TET/ACEL PERTUSS (ADULT) 0.5 ML VIAL IM* ONE (09:00)
--- NOTE | 2017-03-20 10:03 | PD.PPDC ---
[employer] Discharge Instruction Condition Patient Condition: Good Diet Diet: Resume Regular Diet Activity/Restrictions Restrictions: No Exercising No Lifting No Driving No Sexual Activity Nothing in the Vagina No [place] No Tampons, douche Wound/Drain Care Instructions Wound/Drain Care Instructions: Remove Steri Strips in 1 week Follow-up Follow-up with Physician: 1, Week/Weeks Provider Information: Appointment clinic in 1 week for post check Return to clinic for [employer]K [employer]LYST Instructions: Fever greater than 101 Chills Worsening abdominal pain Excessive Vaginal Bleeding More than 2 pads per hour Unable to tolerate diet OB Instructions: Breast Tenderness Depression Blurried Vision Headache Surgical Instructions: Incisional Drainage Incisional Redness MILAN HALL MD Mar 20, 2017 10:03
--- NOTE | 2017-03-20 10:07 | DS ---
Date/Time of Note Date/Time of Note DATE: 03/20/17 TIME: 10:05 Discharge Summary Admission/Discharge Info Admit Date/Time Mar 17, 2017 at 06:15 Discharge Date/Time March 20, 2017 at 10 AM Discharge Diagnosis Post primary date 3 Patient Condition: Good Procedures Primary due to suspected macrosomia patient request for delivery declined trial of labor Hx of Present Illness Term Hospital Course Satisfactory uneventful Home Meds Reported Medications Multivit/Min/Fol Ac/Iron/Pren* ( S*) 1 Tab Tab, 1 TAB PO DAILY, TAB 12/23/16 Follow-up Plan Appointment office in 1 week Primary Care Provider Care Physician No Primary Time spent on discharge: < 30 minutes MILAN HALL MD Mar 20, 2017 10:07
== END 2017-03-20 14:30 | disposition home or self-care (01) | DRG 766 ==
LOC: L-D 06:15 → PP1 12:47
PROVIDERS: ADMIT Obstetrics & Gynecology; ATTEND Obstetrics & Gynecology
PROC: 10D00Z1 Extraction of Products of Conception, Low, Open Approach (ICD-10-PCS; principal; 2017-03-17 08:00)
PROC: 3E00X4Z Introduction of Serum, Toxoid and Vaccine into Skin and Mucous Membranes, External Approach (ICD-10-PCS; 2017-03-20)
DX: O48.0 Post-term pregnancy (principal); Z23 Encounter for immunization; Z3A.40 40 weeks gestation of pregnancy; Z37.0 Single live birth
CPT/HCPCS: 85025; 85610; 85730; 86592; 86850; 86900; 86901; 87340; 90715; 94760; 99464; J0690; J1885; J2274; J2370; J2405; J2590; J2765; J3010; J7120